=== PATIENT | female | born 1940 | race Caucasian/White ===

== ENCOUNTER 2021-07-28 11:30 | Outpatient (RCR) | payer MEDICARE, SELFPAY ==
--- NOTE | 2021-05-28 14:06 | HP.PTEVAL ---
Patient's Visit Information SANA GUILLERMO is a 81 year old F referred to Physical Therapy by TABATHA FAITH with a diagnosis of cervical spondylosis with myelopathy. Date of Evaluation: 05/28/21 Physical Therapist: STEVEN Reed - Visit Plan Frequency: 2x /Week Duration: 6 Weeks Plan: 2X/ weeks 4-6 weeks for postural exercises, gait training, LE and UE strengthening trasfers, MT to the c-spine and mid trap/levator region for a few visits to see if helpful, balance training with HEP. - Subjective Pt reports that she was DX with a mild for of PD and before that she had all kinds of weakness. She has neck pain when she lies down at night to go to sleep and uses a bed carlos. She also has some arm pain when she moves them. Her legs are weak and has a hard time standing. Her legs and feet are swollen during the day and go down at night. She had an MRI of brain and MRI and DX with light form of PD. Her neurologist wanted her to do PT. Sit to stand: She is able to get up using B UE's.... she struggles getting out of a soft chair. She lives with her partner. Stairs: she has no stairs at home but she when she does go up them she pulls herself up the stairs and goes 2 feet to a stair and when goes down she goes down backwards. She has not had any falls. She has been using the rollator since December... she uses it pretty much all the time. She also has scoliosis and bends over all the time. Her pain is more up towards her head when she lays down at night. She can only stand up for 3-4 min and then she needs to sit down. Pt just started low dose dopamine and uped it 3 X/day... she notices that she is writing bigger but nothing else has changed. No freezing moments. - Pain neck pain Pain Intensity (Out of 10): 0 - Objective Gait: walks with a 3 point rollator leaning on the rollator with B toe slap with shorter strides. Gait without a walker: flexed trunk, bent knees, shorter stride and more shuffling with reaching for the hallway rails. LE MMT: Hip flex 4/5 B, Knee ext 4-/5, Knee flex 4-/5, B hip abd 4/5, bridge able to raise bottom 1/4 normal ROM, pt struggles to liftt heels without UE support (about 1/4 normal ROM) and can not lift toes off the ground unsupported. When pt goes to lay supine she likes to hold her head up and does better with less pain with HOB higher and towel roll under her neck... pt will try this at home. heels and toes. UE MMT: B shld flex 3+/5 and B shld Abd 3+/5, B ER 3-/5 and B IR 3+/5. posture: Sits with rounded shoulders and FW head posture. palpation: tender along B levator and mid and upper trap area and tight to palpation. C-spine AROM: flex 50%, ext 25%, SB B 50%, Rot B 50%. Tinetti: 10 - Balance/Special Test Scores Tinetti Balance Score: 8 Tinetti Gait Score: 2 Tinetti Balance & Gait Score: 10 Lower Extremity Functional Score: 36 - Goals Goal 1:: I HEP for posture, shoulder and LE strengthening Goal Time Frame: 4-6 Weeks Goal 2:: Increase LE by 1/2 muscle grade (at time of the eval: LE MMT: Hip flex 4/5 B, Knee ext 4-/5, Knee flex 4-/5, B hip abd 4/5, bridge able to raise bottom 1/4 normal ROM, pt struggles to liftt heels without UE support (about 1/4 normal ROM) and can not lift toes off the ground unsupported). Goal Time Frame: 4-6 Weeks Goal 3:: Sit with improved upright posture during treatments session with being cued often. Goal Time Frame: 4-6 Weeks Goal 4:: Be able to lay down at night without having neck pain and use towel roll and extra pillows if needed. Goal Time Frame: 4-6 Weeks Goal 5:: Improve Tinetti by 5 points (score of 10 at eval) to decrease fall risk. Goal Time Frame: 4-6 Weeks Goal 6:: Be able to walk with least restrictive device with increase stride length, upright posture and heel to toe gait pattern on command. Goal Time Frame: 4-6 Weeks - Rehabilitation Potential Rehabilitation Potential: Good - Anticipated Interventions Patient/Client Instruction: Educate patient on: Condition, Plan of Care For the Purpose of:: To decrease pain, To increase ROM, To improve nutrient delivery to tissue, To improve muscle performance and motor function, To improve ability to perform ADL's, To increase tolerance to activity/condition/position, To improve performance and independence with ADL's, To improve ability of physical actions for home/community/work/leisure, To improve gait and locomotor functions, To improve health of tissue, To increase flexibility/ROM, To improve endurance, To improve balance, To improve safety with gait Therapeutic Exercise to Include: Strength training, Endurance training, Balance training, Body mechanics, Postural training, Flexibilty training, Gait and locomotor training, Neuromotor development, Passive ROM, Active ROM, Dynamic Lumbar Stabilization, Scapular Strength/Stabilization For the Purpose of:: To decrease pain, To increase ROM, To improve nutrient delivery to tissue, To improve muscle performance and motor function, To improve ability to perform ADL's, To increase tolerance to activity/condition/position, To improve performance and independence with ADL's, To decrease level of supervision to perform tasks, To improve ability of physical actions for home/community/work/leisure, To improve gait and locomotor functions, To improve health of tissue, To decrease soft tissue restriction, To increase flexibility/ROM, To improve endurance, To improve balance, To improve safety with gait Functional Training to Include: Gait training For the Purpose of:: To improve gait and locomotor functions, To improve safety with gait Manual Therapy Techniques to Include: Passive ROM, Soft tissue mobilization For the Purpose of:: To increase ROM, To improve nutrient delivery to tissue, To improve muscle performance and motor function Thank you for the opportunity to evaluate your patient. For Medicare and Medicare HMO plans, please review the plan of care and approve it. It will need to be FAXED BACK to us at [phone] for Medicare purposes. For Medicare only, by signing this I certify the plan of care. Please let me know if there are questions or concerns regarding this plan of care. Physician Signature: Date:
--- NOTE | 2021-06-25 12:57 | HP.PTREVAL ---
TORITOCARLIE FAITH, It has been my pleasure to treat SANA GUILLERMO over the last 9 visits for cervical spondylosis with myelopathy. Please see the progress note below for an update on the physical therapy plan of care! Subjective: Pt reports that her neck pain is much better and has no neck pain. She feels that her R arm is a little more strong and flexible. Pt is able to put her coat on better. She is trying to walk better (about 1/10th of a mile) everyday with her rollator, standing up from a chair she is getting stronger (still needs her arms to get up out of a chair). Pt reports that she wants to work more on her posture. Objective/Function: Stairs: up the steps with 2 hand rails (pulling self upwards). and down with the L leg leading. Tinetti 13. LE MMT improving. Posture still remains flexed. Plan Plan: 2X/ week fo r 4 weeks for LE strengthening (stepping up on step), stairs, gait training, posture and core stability with HEP Balance/Gait/Functional tests - Balance/Special Test Scores Tinetti Balance Score: 9 Tinetti Gait Score: 4 Tinetti Balance & Gait Score: 13 Lower Extremity Functional Score: 38 Goals Goal 1:: I HEP for posture, shoulder and LE strengthening Goal Time Frame: 4-6 Weeks Goal Progress: Goal Met Goal 2:: Increase LE by 1/2 muscle grade (at time of the eval: LE MMT: Hip flex 4/5 B, Knee ext 4/5, Knee flex 4/5, B hip abd 4/5, bridge able to raise bottom 1/4 normal ROM, pt struggles to liftt heels without UE support (about 1/4 normal ROM) and can not lift toes off the ground unsupported). Goal Time Frame: 4-6 Weeks Goal Progress: Progressing Goal 3:: Be able to go up and down the steps recip with 2 handrails without having to pull himself up the stairs. Goal Time Frame: 4-6 Weeks Goal 4:: Be able to lay down at night without having neck pain and use towel roll and extra pillows if needed. Goal Time Frame: 4-6 Weeks Goal Progress: Goal Met Goal 5:: Improve Tinetti by 5 points (score of 10 at eval) to decrease fall risk. Goal Time Frame: 4-6 Weeks Goal Progress: Progressing Goal 6:: Be able to walk with least restrictive device with increase stride length, upright posture and heel to toe gait pattern on command. Goal Time Frame: 4-6 Weeks Goal Progress: Progressing Anticipated Interventions Patient/Client Instruction: Educate patient on: Condition, Plan of Care For the Purpose of:: To decrease pain, To increase ROM, To improve nutrient delivery to tissue, To improve muscle performance and motor function, To improve ability to perform ADL's, To increase tolerance to activity/condition/position, To improve performance and independence with ADL's, To improve ability of physical actions for home/community/work/leisure, To improve gait and locomotor functions, To improve health of tissue, To increase flexibility/ROM, To improve endurance, To improve balance, To improve safety with gait Therapeutic Exercise to Include: Strength training, Endurance training, Balance training, Body mechanics, Postural training, Flexibilty training, Gait and locomotor training, Neuromotor development, Passive ROM, Active ROM, Dynamic Lumbar Stabilization, Scapular Strength/Stabilization For the Purpose of:: To decrease pain, To increase ROM, To improve nutrient delivery to tissue, To improve muscle performance and motor function, To improve ability to perform ADL's, To increase tolerance to activity/condition/position, To improve performance and independence with ADL's, To decrease level of supervision to perform tasks, To improve ability of physical actions for home/community/work/leisure, To improve gait and locomotor functions, To improve health of tissue, To decrease soft tissue restriction, To increase flexibility/ROM, To improve endurance, To improve balance, To improve safety with gait Functional Training to Include: Gait training For the Purpose of:: To improve gait and locomotor functions, To improve safety with gait Manual Therapy Techniques to Include: Passive ROM, Soft tissue mobilization For the Purpose of:: To increase ROM, To improve nutrient delivery to tissue, To improve muscle performance and motor function Please do not hesitate to contact me at [phone] by phone or if you have questions or concerns regarding this new plan of care! Sincerely, STEVEN Reed
--- NOTE | 2021-07-28 14:51 | HP.PTDCSUM ---
It has been my pleasure to treat SANA GUILLERMO referred by TABATHA FAITH, with the diagnosis of cervical spondylosis with myelopathy for a total of 17 visit(s). Discharge Date: 07/28/21 Please see the following information for a summary of their discharge status. Subjective: Pt reports that she feels good. Pt RTD (neurologist today). Pt feels that her balance is good but her posture is good. She is trying part of the time to remind herself to stand with good posture. neck pain Pain Intensity (Out of 10): 0 R arm pain Pain Intensity (Out of 10): 2 % Improvement: 20 Objective/Function: Gait walks with wheeled rollator with flexed trunk. Tinetti 19. Stairs: up and down recip with 2 hand rails. LE MMT: B hip flex 4/5, B knee ext 4/5, B knee flex 4/5, B seated hip abd 4/5 Goal 1:: I HEP for posture, shoulder and LE strengthening Goal Progress: Goal Met Goal 2:: Increase LE by 1/2 muscle grade (at time of the eval: LE MMT: Hip flex 4/5 B, Knee ext 4/5, Knee flex 4/5, B hip abd 4/5, bridge able to raise bottom 1/4 normal ROM, pt struggles to liftt heels without UE support (about 1/4 normal ROM) and can not lift toes off the ground unsupported). Goal Progress: Goal Met Goal 3:: Be able to go up and down the steps recip with 2 handrails without having to pull himself up the stairs. Goal Progress: Goal Met Goal 4:: Be able to lay down at night without having neck pain and use towel roll and extra pillows if needed. Goal Progress: Goal Met Goal 5:: Improve Tinetti by 5 points (score of 10 at eval) to decrease fall risk. Goal Progress: Goal Met Goal 6:: Be able to walk with least restrictive device with increase stride length, upright posture and heel to toe gait pattern on command. Goal Progress: Progressing Plan: DC PT HEP Discharge Comments: DC PT If there are questions or concerns regarding this patient's physical therapy, please feel free to call me at [phone]. Thank you for the referral of this patient. Sincerely, Evonne Saldivar, MPT Balance/Gait/Functional tests - Balance/Special Test Scores Tinetti Balance Score: 11 Tinetti Gait Score: 8 Tinetti Balance & Gait Score: 19 Lower Extremity Functional Score: 40
== END 2021-07-28 19:00 | disposition home or self-care (01) ==
LOC: PT 11:30
DX: M47.12 Other spondylosis with myelopathy, cervical region (principal)
CPT/HCPCS: 97110; 97140; 97162; 97530

== ENCOUNTER 2023-07-14 15:00 | Outpatient (RCR) | payer MEDICARE, SELFPAY ==
--- NOTE | 2023-07-14 15:35 | HP.PTDCSUM ---
Discharge Summary D/C summary: It has been my pleasure to treat SANA GUILLERMO referred by TABATHA FAITH, with the diagnosis of Left Shoulder Pain for a total of 6 visit(s). Discharge Date: 07/14/23 Please see the following information for a summary of their discharge status. Subjective Subjective: Pt reports 1/10 shoulder pain that comes and goes Pain L SH: Pain Intensity (Out of 10): 1 Overall Improvement % Improvement: 50 Objective Objective/Function: Pt has full understanding of HEP Goals Goal 1:: Patient will report participation in home exercise program activities a minimum of 5 days per week, as adjunct to skilled physical therapy intervention in preparation for independent home management upon discharge. Goal Progress: Goal Met Goal 2:: Patient will report an decrease 14 points on the Quick DASH to show minimal clinical significant difference on patients functional outcome measure. Goal 3:: Patient will maintain proper posture t/o tx session to demo increased scap s/s Goal Progress: Progressing Goal 4:: Patient will report 80% improvement Goal Progress: Progressing Plan Plan: DC PT to HEP D/C Information Discharge Comments: DC PT to HEP d/c sentence: If there are questions or concerns regarding this patient's physical therapy, please feel free to call me at [phone]. Thank you for the referral of this patient. Sincerely, Evonne Saldivar, MPT Balance/Gait/Functional tests Balance/Special Test Scores Quick DASH Score: 22.7250 Improvement % Improvement: 50
--- NOTE | 2023-07-19 12:49 | HP.PTEVAL ---
Patient's Visit Information Visit Information Visit Information: SANA GUILLERMO is a 83 year old F referred to Physical Therapy by TABATHA FAITH with a diagnosis of Left Shoulder Pain. Date of Evaluation: 06/24/23 Physical Therapist: Maira Castorena DPT Visit Plan Frequency: 2x /Week Duration: 4 Weeks Plan: DC PT to HEP Subjective Subjective: Left shoulder pain for about 3 weeks- insidious onset- she saw her MD and he diagnosed her with tendonitis. The pain comes and goes. If she does not use it its 0/10 pain. Worst: 2/10 Agg: movement behind the back. If she bring the arm back to resting the pain goes away. The pain is in the anterior shoulder- does not radiate down the arm or up into the neck. No N/T in the fingers- Right hand dominate. Fully with dressing, bathing and driving. 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 She sees Evonne for the Parkinsons Class- she uses a walker all the time- due to her balance issues. Does not bother her when she uses her walker-does bother her a little when she pushes up from a chair. No neck pain, blurred vision or dizziness. Sleep: not disturbed. No X-rays or MRI. PMHx/Meds: see list in chart. Pain L SH: Pain Intensity (Out of 10): 1 Objective Objective: Posture: forward head, rounded shoulder and increased kyphosis- she is able to correct with tactile cues but is unable to maintain Gait: uses a 3 wheeled walker- has Parkinsons- shuffling gait pattern with significant rounded shoulders and leaning forward gait Palpation: tender to palpation in bicipital groove- no pain in cervical spine or along medial border of the scapula Sensation: WNL to gross touch bilateral UE ROM: AROM: WNL in all planes of the cervical and left UE- does have increased pain with end range IR behind the back and flexion Strength: Scap: fair minus, Shoulder: Flexion: 4/5, Abd: 4/5, IR/ER at neutral: 4/5, Extn: 4+/5, Elbow: 4+/5, Adaptive Physical Education Specialist: equal to other side Special Tests L Shoulder Lift Off Test - Subscapular Tear: Negative L Shoulder Empty Can - SS: Negative L Shoulder Belly Press - SupScap: Negative L Shoulder Neer - Impingement: Positive L Shoulder Serrano Stew - Impingement: Positive Balance/Special Test Scores Quick DASH Score: 22.7250 Goals Goal 1:: Patient will report participation in home exercise program activities a minimum of 5 days per week, as adjunct to skilled physical therapy intervention in preparation for independent home management upon discharge. Goal Time Frame: 6-8 Weeks Goal 2:: Patient will report an decrease 14 points on the Quick DASH to show minimal clinical significant difference on patients functional outcome measure. Goal Time Frame: 6-8 Weeks Goal 3:: Patient will maintain proper posture t/o tx session to demo increased scap s/s Goal Time Frame: 6-8 Weeks Goal 4:: Patient will report 80% improvement Goal Time Frame: 6-8 Weeks Rehabilitation Potential Physical Therapy Diagnosis: Patient presents with hypomobility- she has decreased painfree ROM, scapular strength/stabilization and muscular endurance leading to increased pain with ADL's. Rehabilitation Potential: Good Anticipated Interventions Patient/Client Instruction: Educate patient on: Benefits of Fitness Program Therapeutic Exercise to Include: Strength training, Endurance training, Balance training, Coordination, Agility training, Body mechanics, Postural training, Flexibilty training, Gait and locomotor training, Neuromotor development, Relaxation training, Dynamic Lumbar Stabilization and Scapular Strength/Stabilization For the Purpose of:: To improve muscle performance and motor function Cryotherapy (ice pack, ice massage): Yes Thermo therapy (hot pack): Yes Text: Thank you for the opportunity to evaluate your patient. For Medicare and Medicare HMO plans, please review the plan of care and approve it. It will need to be FAXED BACK to us at [phone] for Medicare purposes. For Medicare only, by signing this I certify the plan of care. Please let me know if there are questions or concerns regarding this plan of care. Physician Signature: Date:
== END 2023-07-14 19:00 | disposition home or self-care (01) ==
LOC: PT 15:00
DX: M77.8 Other enthesopathies, not elsewhere classified (principal)
CPT/HCPCS: 97110; 97162